=== PATIENT | male | born 1990 ===

== ENCOUNTER 2016-07-31 02:28 | Emergency (ER) | payer MEDICAID ==
[2016-07-31 02:29] VITALS: BMI 33.3
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
[2016-07-31 05:05] VITALS: BP 132/75; PULSE 86; RESP 16; TEMP 97.8
[2016-07-31 05:11] VITALS: O2SAT 98
== END 2016-07-31 05:36 | disposition home or self-care (01) ==
LOC: C.ER 02:28
DX: S02.31XA Fracture of orbital floor, right side, initial encounter for closed fracture (principal); S02.2XXA Fracture of nasal bones, initial encounter for closed fracture; Y04.0XXA Assault by unarmed brawl or fight, initial encounter

== ENCOUNTER 2016-12-30 14:42 | Emergency (ER) | payer MEDICAID ==
[2016-12-30 14:43] VITALS: BMI 24.3
[2016-12-30 15:12] VITALS: RESP 20
[2016-12-30] MEDS ORDERED: Sodium Chloride 0.9% 1,000 ML IV ONE (16:01)
--- NOTE | 2016-12-30 16:10 | C.PDOC ---
History Of Present Illness 26 y/o male, with PMHx of substance abuse, presents to ED with complaint of abdominal pain associated with diarrhea for 2 days. Denies fevers or other complaints. Time Seen by Provider: 12/30/16 15:33 Chief Complaint (Nursing): Abdominal Pain History Per: Patient History/Exam Limitations: no limitations Onset/Duration Of Symptoms: Days Current Symptoms Are (Timing): Still Present Location Of Pain/Discomfort: Diffuse Radiation Of Pain To:: None Quality Of Discomfort: "Pain" Associated Symptoms: Diarrhea. denies: Fever, Chills, Vomiting, Urinary Symptoms Recent travel outside of the [place]: No Past Medical History Reviewed: Historical Data, Nursing Documentation, Vital Signs Vital Signs: Last Vital Signs Temp 98.0 F 12/30/16 17:28 Pulse 77 12/30/16 17:28 Resp 20 12/30/16 17:28 BP 123/72 12/30/16 17:28 Pulse Ox 100 12/30/16 17:28 - Medical History PMH: No Chronic Diseases - [facility] Procedures APPLICATION OF SPLINT (11/04/13) TETANUS TOXOID ADMINIST (10/07/13) Family History: States: Unknown Family Hx - Social History Hx Tobacco Use: Yes Hx Alcohol Use: No Hx Substance Use: No - Immunization History Hx Tetanus Toxoid Vaccination: Yes Hx Influenza Vaccination: No Hx Pneumococcal Vaccination: No Review Of Systems Except As Marked, All Systems Reviewed And Found Negative. Constitutional: Negative for: Fever, Chills Cardiovascular: Negative for: Chest Pain Respiratory: Negative for: Cough, Wheezing Gastrointestinal: Positive for: Abdominal Pain, Diarrhea. Negative for: Vomiting Skin: Negative for: Rash Neurological: Negative for: Headache, Dizziness Physical Exam - Physical Exam Appears: Non-toxic, No Acute Distress Skin: Normal Color, Warm, Dry Head: Atraumatic, Normacephalic Oral Mucosa: Moist Chest: Symmetrical Cardiovascular: Rhythm Regular Respiratory: Normal Breath Sounds, No Rales, No Rhonchi, No Wheezing Gastrointestinal/Abdominal: Soft, Tenderness (mild nonfocal tenderness), No Guarding, No Rebound Back: Normal Inspection Extremity: Normal ROM Neurological/Psych: Oriented x3 ED Course And Treatment - Laboratory Results Result Diagrams: 12/30/16 16:09 12/30/16 16:09 O2 Sat by Pulse Oximetry: 97 (RA) Pulse Ox Interpretation: Normal Medical Decision Making Medical Decision Making: Plan: * Protonix, IV fluids, Labs * Reassess Progress:pt reassesess. states symptoms improved. offered ct imaging as pain mild, but persistent. declines, asking for dc without further imaging. return precautions advised. Disposition - Disposition Referrals: [facility] [Outside] [facility] [Outside] Arben Coffman [Staff Provider] - Disposition: HOME/ ROUTINE Disposition Time: 05:00 Condition: STABLE Additional Instructions: please follow up with your doctor. return to er with worsening symptoms or concerns. Prescriptions: Famotidine [Pepcid] 20 mg PO DAILY #20 tab Instructions: Acute Diarrhea (ED), Acute Abdominal Pain (ED) Forms: [employer] (Romanian) - Clinical Impression Clinical Impression: Abdominal pain - Scribe Statement The provider has reviewed the documentation as recorded by the Scribe SM All medical record entries made by the Scribe were at my direction and personally dictated by me. I have reviewed the chart and agree that the record accurately reflects my personal performance of the history, physical exam, medical decision making, and the department course for this patient. I have also personally directed, reviewed, and agree with the discharge instructions and disposition.
[2016-12-30 16:25] LABS: BASO % 0.5 % (0.0-2.0); EOS # 0.3 K/uL (0.0-0.7); EOS % 2.9 % (0.0-4.0); HEMATOCRIT 43.1 % (35.0-51.0); LYMPH # 1.8 K/uL (1.0-4.3); LYMPH % 20.2 % (20.0-40.0); MEAN CELL VOLUME 72.9 fL (80.0-94.0); MEAN CORPUSCULAR HEMOGLOBIN 23.2 pg (27.0-31.0); MEAN CORPUSCULAR HGB CONC 31.8 g/dL (33.0-37.0); MEAN PLATELET VOLUME 8.4 fL (7.2-11.7); MONO # 0.7 K/uL (0.0-0.8); MONO % 7.4 % (0.0-10.0); NRBC % 0.2 % (0.0-2.0); RED CELL DISTRIBUTION WIDTH 15.7 % (11.5-14.5)
[2016-12-30 16:33] LABS: INR 1.1
[2016-12-30 16:37] LABS: CHLORIDE 101 mmol/L (98-107); POTASSIUM 4.3 mmol/L (3.6-5.2); SODIUM 137 mmol/L (132-148)
[2016-12-30 16:39] LABS: BILIRUBIN,TOTAL 0.3 mg/dL (0.2-1.3); GFR AFRICAN-AMERICAN > 60
[2016-12-30 16:40] LABS: ALB/GLOB RATIO 1.2 (1.0-2.1); ALKALINE PHOSPHATASE 53 U/L (38-126); ALT/SGPT 33 U/L (21-72); AST/SGOT 23 U/L (17-59); BLOOD UREA NITROGEN 14 mg/dL (9-20); CALCIUM 9.4 mg/dl (8.6-10.4); CARBON DIOXIDE 28 mmol/L (22-30); GLUCOSE,RANDOM 95 mg/dL (75-110); TOTAL PROTEIN 7.5 g/dL (6.3-8.3)
[2016-12-30 17:28] VITALS: BP 123/72; PULSE 77; TEMP 98
[2016-12-30 17:50] VITALS: O2SAT 97
== END 2016-12-30 17:29 | disposition home or self-care (01) ==
LOC: C.ER 14:42
DX: R10.9 Unspecified abdominal pain (principal); Z87.891 Personal history of nicotine dependence
CPT/HCPCS: 80053; 83690; 85025; 85610; 85730; 96361; 96374; 99283; C9113; J7040

== ENCOUNTER 2017-06-14 00:13 | Emergency (ER) | payer MEDICAID, OTHER ==
[2017-06-14 00:26] VITALS: BMI 26.6
[2017-06-14 00:29] VITALS: BP 103/69; PULSE 85; RESP 20; TEMP 98.1; O2SAT 98
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
--- NOTE | 2017-06-14 08:09 | RAD ---
PROCEDURE: Left Wrist Radiographs. HISTORY: pain COMPARISON: None. FINDINGS: BONES: Normal. No fracture. JOINTS: Normal. No dislocation. SOFT TISSUES: Normal. OTHER FINDINGS: None. IMPRESSION: Normal left wrist radiographs.
== END 2017-06-14 01:10 | disposition home or self-care (01) ==
LOC: C.ER 00:13
DX: S63.502A Unspecified sprain of left wrist, initial encounter (principal); W01.0XXA Fall on same level from slipping, tripping and stumbling without subsequent striking against object, initial encounter; Y92.9 Unspecified place or not applicable

== ENCOUNTER 2017-06-16 10:11 | Emergency (ER) | payer OTHER ==
[2017-06-16 10:11] VITALS: BMI 26.6
[2017-06-16 10:20] VITALS: BP 110/67; PULSE 74; RESP 20; TEMP 97.3; O2SAT 99
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
== END 2017-06-16 11:26 | disposition home or self-care (01) ==
LOC: C.ER 10:11
DX: S63.502A Unspecified sprain of left wrist, initial encounter (principal); X58.XXXA Exposure to other specified factors, initial encounter; Z72.0 Tobacco use

== ENCOUNTER → 2017-12-06 19:16 | Emergency (ER) | payer MEDICAID ==
[~2017-12-06 19:16] MED LIST: Amoxicillin-Clav 875-125 mg Tab PO ONE
[2017-12-06 19:17] VITALS: BMI 26.6
== END | disposition left against medical advice (07) ==
LOC: C.ER 19:16
DX: Z02.89 Encounter for other administrative examinations (principal); R51 Headache; Y09 Assault by unspecified means

== ENCOUNTER 2017-12-07 07:23 | Emergency (ER) | payer MEDICAID ==
[2017-12-07 07:23] VITALS: BMI 26.6
[2017-12-07 07:29] VITALS: BP 123/86; PULSE 98; RESP 18; TEMP 98.7; O2SAT 97
[2017-12-07] MEDS ORDERED: Tdap Vaccine 0.5 ml Vial (10-64 yrs) IM ONE (07:50)
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
== END 2017-12-07 07:57 | disposition left against medical advice (07) ==
LOC: C.ER 07:23
DX: S00.12XA Contusion of left eyelid and periocular area, initial encounter (principal); Y04.0XXA Assault by unarmed brawl or fight, initial encounter; Y92.9 Unspecified place or not applicable

== ENCOUNTER 2017-12-07 14:13 | Emergency (ER) | payer MEDICAID ==
[2017-12-07 14:13] VITALS: BMI 26.6
[2017-12-07 14:29] VITALS: TEMP 98.5
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
[2017-12-07] MEDS ORDERED: Amoxicillin-Clav 875-125 mg Tab PO STA (18:00)
[2017-12-07 18:43] VITALS: BP 135/78; PULSE 78; RESP 16; O2SAT 98
== END 2017-12-07 18:42 | disposition home or self-care (01) ==
LOC: C.ER 14:13
DX: S02.82XA Fracture of other specified skull and facial bones, left side, initial encounter for closed fracture (principal); Y04.0XXA Assault by unarmed brawl or fight, initial encounter; Y92.9 Unspecified place or not applicable

== ENCOUNTER 2017-12-17 03:59 | Emergency (ER) | payer MEDICAID ==
[2017-12-17 04:00] VITALS: BMI 26.6
[2017-12-17 04:18] VITALS: RESP 16
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
[2017-12-17] MEDS ORDERED: Lidocaine 5% Patch TD STA (06:35)
[2017-12-17] MEDS ORDERED: Lidocaine 5% Patch TD ONE (06:44)
[2017-12-17 07:17] VITALS: BP 128/76; PULSE 78; TEMP 98.6; O2SAT 98
--- NOTE | 2017-12-17 15:52 | CT ---
CT chest HISTORY: Right chest wall injury. COMPARISON: None available. TECHNIQUE: Multiple contiguous axial images were performed through the chest without the use of intravenous contrast. Subsequently, sagittal and coronal reformatted images were obtained. This CT exam was performed using one or more of the following dose reduction techniques: Automated exposure control, adjustment of the mA and/or kV according to patient size, and/or use of iterative reconstruction technique. Findings: Bilateral basal hypoventilatory changes. Scattered areas of calcification and or granulomatous changes along the fissure in the left lung; for example, measuring 6 millimeters on series 4, image 63. Trachea thru central airways are patent. No significant axillary adenopathy. Heterogeneity of the thyroid. Few calcified foci seen within the prevascular space measuring 7 and 5 millimeters respectively which may represent some calcified lymph nodes. Some residual thymic tissue in place. No significant hilar adenopathy. No pleural or pericardial effusion. Visualized upper abdomen appears grossly preserved. Evaluation of the osseous structures demonstrate some questionable cortical irregularity at the right transverse process of the T1 vertebral body which may represent osseous injury, possibly chronic. Correlation with MRI may be helpful for further evaluation. This is best seen on series 4 images 121 through 124 as well as series 601, images 84-87. No evidence of acute displaced rib fracture. Bilateral shoulder joints appear preserved. Impression: 1. Evaluation of the osseous structures demonstrate some questionable cortical irregularity at the right transverse process of the T1 vertebral body which may represent osseous injury, possibly chronic. Correlation with MRI may be helpful for further evaluation. This is best seen on series 4 images 121 through 124 as well as series 601, images 84-87. 2. Scattered areas of calcification and or granulomatous changes along the fissure in the left lung; for example, measuring 6 millimeters on series 4, image 63. 3. Few calcified foci seen within the prevascular space measuring 7 and 5 millimeters respectively which may represent some calcified lymph nodes. Some residual thymic tissue in place. A preliminary report was generated at 6:45 a.m. on 12/17/[address] Marina Caldwell from [facility].
[2017-12-17] MEDS ORDERED: Amoxicillin-Clav 875-125 mg Tab PO ONE (19:10)
[2017-12-17] MEDS ORDERED: Albuterol 0.083% Inhal Sol (2.5 mg/3 mL) UD ONE (19:10)
== END 2017-12-17 07:21 | disposition home or self-care (01) ==
LOC: C.ER 03:59
DX: S20.211A Contusion of right front wall of thorax, initial encounter (principal); W19.XXXA Unspecified fall, initial encounter; F10.129 Alcohol abuse with intoxication, unspecified; Y90.9 Presence of alcohol in blood, level not specified

== ENCOUNTER 2017-12-31 06:54 | Emergency (ER) | payer MEDICAID ==
[2017-12-31 06:55] VITALS: BMI 26.6
== END 2017-12-31 07:05 | disposition left against medical advice (07) ==
LOC: C.ER 06:54
DX: Z02.89 Encounter for other administrative examinations (principal); M79.10 Myalgia, unspecified site